=== PATIENT | male | born 1935 | race Caucasian/White ===

== ENCOUNTER 2016-10-01 15:13 | Emergency (ER) | payer MEDICARE, OTHER ==
--- NOTE | 2016-10-01 16:34 | ER Document Report ---
ED Medical Screen (RME) - General Stated Complaint: POSSIBLE EYE INFECTION Time seen by provider: 16:31 Mode of Arrival: Wheelchair Information source: Patient Notes: 81-year-old male with history of basal cell, and precancerous on the right side of his nose has been using Zyclara .skin ointment (dr. bishop) which she got into his right eye accidentally last night. Today he has a mucoid yellow drainage with puffiness and increased redness to his inferior orbit. I have greeted and performed a rapid initial assessment of this patient. A comprehensive ED assessment, evaluation of the patient, analysis of test results , and completion of the medical decision making process will be conducted by additional ED providers. TRAVEL OUTSIDE OF THE [place] IN LAST 30 DAYS: No - Related Data Allergies/Adverse Reactions: No Known Allergies Allergy (Unverified 12/21/14 20:22) Past Medical History - Past Medical History Cardiac Medical History: Reports: Hx Hypercholesterolemia, Hx Hypertension Malignancy Medical History: Reports Hx Skin Cancer Past Surgical History: Reports: Hx Appendectomy, Hx Tonsillectomy Physical Exam - Vital signs Vitals: Temp Pulse Resp BP Pulse Ox 98.4 F 89 24 H 162/99 H 96 10/01/16 15:50 10/01/16 15:50 10/01/16 15:50 10/01/16 15:50 10/01/16 15:50 Course - Vital Signs Vital signs: Temp Pulse Resp BP Pulse Ox 98.4 F 89 24 H 162/99 H 96 10/01/16 15:50 10/01/16 15:50 10/01/16 15:50 10/01/16 15:50 10/01/16 15:50
[2016-10-01] MEDS ORDERED: CLINDAMYCIN HCL 150 MG CAPSULE PO ONE (20:48)
--- NOTE | 2016-10-01 20:50 | ER Document Report ---
ED General - General Chief Complaint: Eye Problem Stated Complaint: POSSIBLE EYE INFECTION Mode of Arrival: Wheelchair Information source: Patient Notes: 81-year-old female presents with complaints of redness to the right cheek. Patient notes that he has a skin cancer that he's been treating, area has dried out and cracked. Denies any fevers or chills nausea vomiting or diarrhea denies any pain family members force the patient to come in TRAVEL OUTSIDE OF THE [place] IN LAST 30 DAYS: No - HPI Onset: This morning Onset/Duration: Sudden Quality of pain: No pain Severity: Mild Pain Level: Denies Associated symptoms: None Exacerbated by: Denies Relieved by: Denies Similar symptoms previously: No Recently seen / treated by doctor: No - Related Data Allergies/Adverse Reactions: No Known Allergies Allergy (Verified 10/01/16 16:36) Past Medical History - General Information source: Patient - Social History Smoking Status: Never Smoker Cigarette use (# per day): No Chew tobacco use (# tins/day): No Smoking Education Provided: No Frequency of alcohol use: None Drug Abuse: None Family History: Reviewed & Not Pertinent Patient has suicidal ideation: No Patient has homicidal ideation: No - Past Medical History Cardiac Medical History: Reports: Hx Hypercholesterolemia, Hx Hypertension Renal/ Medical History: Denies: Hx Peritoneal Dialysis Malignancy Medical History: Reports Hx Skin Cancer Past Surgical History: Reports: Hx Appendectomy, Hx Tonsillectomy Review of Systems - Review of Systems Notes: REVIEW OF SYSTEMS: CONSTITUTIONAL : Denies fever, chills, or sweats. Denies recent illness. EENT: Denies eye, ear, throat, or mouth pain or symptoms. Denies nasal or sinus congestion or discharge. Denies throat, tongue, or mouth swelling or difficulty swallowing. CARDIOVASCULAR: Denies chest pain. Denies palpitations or racing or irregular heart beat. Denies ankle edema. RESPIRATORY: Denies cough, cold, or chest congestion. Denies shortness of breath, difficulty breathing, or wheezing. GASTROINTESTINAL: Denies abdominal pain or distention. Denies nausea, vomiting , or diarrhea. Denies blood in vomitus, stools, or per rectum. Denies black, tarry stools. Denies constipation. GENITOURINARY: Denies difficulty urinating, painful urination, burning, frequency, blood in urine, or discharge. MUSCULOSKELETAL: Denies back or neck pain or stiffness. Denies joint pain or swelling. SKIN: Redness to right cheek HEMATOLOGIC : Denies easy bruising or bleeding. LYMPHATIC: Denies swollen, enlarged glands. NEUROLOGICAL: Denies confusion or altered mental status. Denies passing out or loss of consciousness. Denies dizziness or lightheadedness. Denies headache. Denies weakness or paralysis or loss of use of either side. Denies problems with gait or speech. Denies sensory loss, numbness, or tingling. Denies seizures. PSYCHIATRIC: Denies anxiety or stress. Denies depression, suicidal ideation, or homicidal ideation. ALL OTHER SYSTEMS REVIEWED AND NEGATIVE. Dictation was performed using [employer] voice recognition software PHYSICAL EXAMINATION: GENERAL: Well-appearing, well-nourished and in no acute distress. HEAD: Right cheek mild edema no fluctuance no hard mass EYES: Pupils equal round and reactive to light, extraocular movements intact, sclera anicteric, conjunctiva are normal. ENT: Nares patent, oropharynx clear without exudates. Moist mucous membranes. NECK: Normal range of motion, supple without lymphadenopathy LUNGS: Breath sounds clear to auscultation bilaterally and equal. No wheezes rales or rhonchi. HEART: Regular rate and rhythm without murmurs ABDOMEN: Soft, nontender, nondistended abdomen. No guarding, no rebound. No masses appreciated. Musculoskeletal: Normal range of motion, no pitting or edema. No cyanosis. NEUROLOGICAL: Cranial nerves grossly intact. Normal speech, normal gait. Normal sensory, motor exams PSYCH: Normal mood, normal affect. SKIN: Warm to touch with no involvement of the ocular muscles from supraorbital to the midcheek on the right Physical Exam - Vital signs Vitals: Temp Pulse Resp BP Pulse Ox 98.4 F 89 24 H 162/99 H 96 10/01/16 15:50 10/01/16 15:50 10/01/16 15:50 10/01/16 15:50 10/01/16 15:50 - HEENT Visual acuity- Right eye: 20/70 Visual acuity- Left eye: 20/50 Visual acuity- Both eyes: 20/50 Corrective lenses worn: Yes Course - Re-evaluation Re-evalutation: 10/01/16 21:28 Patient has obvious cellulitic component, there is no abscess or fluctuance. Patient will be started on clindamycin and has been instructed to recheck in 24- 48 hrs. or to return immediately if symptoms worsen or if there is any eye involvement After performing a Medical Screening Examination, I estimate there is LOW risk for a RETAINED CORNEAL or LID FOREIGN BODY, DEEP SPACE INFECTION (e.g., ORBITAL CELLULITIS OR ABSCESS), ACUTE GLAUCOMA, PENETRATING GLOBE INJURY, RETINAL DETACHMENT, or MENINGITIS thus I consider the discharge disposition reasonable. Also, there is no evidence or peritonitis, sepsis, or toxicity. The patient and I have discussed the diagnosis and risks, and we agree with discharging home with outpatient follow-up with the understanding that symptoms and presentations can change. We also discussed returning to the Emergency Department immediately if new or worsening symptoms occur. We have discussed the symptoms which are most concerning (e.g., changing or worsening pain, vision changes, neck stiffness or fever) that necessitate immediate return. - Vital Signs Vital signs: Temp Pulse Resp BP Pulse Ox 97.9 F 74 18 174/72 H 97 10/01/16 21:08 10/01/16 21:08 10/01/16 21:08 10/01/16 21:08 10/01/16 21:08 Discharge - Discharge Clinical Impression: Facial cellulitis Condition: Stable Disposition: HOME, SELF-CARE Additional Instructions: He must return immediately if symptoms worsen or if there is any pain with eye movement Prescriptions: Clindamycin HCl 300 mg PO Q6 #40 capsule Referrals: JOSSELINE FONTENOT MD [Primary Care Provider] - Follow up as needed
[2016-10-01 21:09] VITALS: BP 174/72
== END 2016-10-01 21:09 | disposition home or self-care (01) ==
LOC: ER 15:13
DX: L03.211 Cellulitis of face (principal); C44.309 Unspecified malignant neoplasm of skin of other parts of face; I10 Essential (primary) hypertension
CPT/HCPCS: 99283; A9270

== ENCOUNTER 2017-09-22 11:29 | Emergency (ER) | payer MEDICARE, OTHER ==
[2017-09-22 12:02] LABS: ABSOLUTE EOSINOPHILS # (AUTO) 0.1 10^3/uL (0.0-0.6); ABSOLUTE LYMPHOCYTES (AUTO) 0.6 10^3/uL (0.5-4.7); ABSOLUTE MONOCYTES (AUTO) 0.6 10^3/uL (0.1-1.4); ABSOLUTE NEUT (AUTO) 9.3 10^3/uL (1.7-8.2); BASOPHILS % (AUTO) 0.4 % (0-2); EOSINOPHILS % (AUTO) 0.5 % (0-6); HEMOGLOBIN 10.4 g/dL (13.5-17.0); LYMPHOCYTES % (AUTO) 5.7 % (13-45); MEAN CORPUSCULAR HEMOGLOBIN 31.9 pg (27.0-33.4); MEAN CORPUSCULAR HGB CONC 33.6 g/dL (32.0-36.0); MEAN CORPUSCULAR VOLUME 95 fl (80-97); MONOCYTES % (AUTO) 5.7 % (3-13); PLATELET COUNT 129 10^3/uL (150-450); RED BLOOD COUNT 3.27 10^6/uL (4.35-5.55); RED CELL DISTRIBUTION WIDTH 15.6 % (11.5-14.0); SEGMENTED NEUTROPHILS % (AUTO) 87.7 % (42-78); TOTAL CELLS COUNTED % (AUTO) 100 %; WHITE BLOOD COUNT 10.6 10^3/uL (4.0-10.5)
[2017-09-22] MEDS ORDERED: NORMAL SALINE 1000 ML 1,000 ML IV ONE (12:04)
--- NOTE | 2017-09-22 12:11 | ER Document Report ---
ED General - General Chief Complaint: General Weakness Stated Complaint: FALL Time Seen by Provider: 09/22/17 11:43 Information source: Patient Notes: 82-year-old male who states over the last few weeks he has had multiple falls. He denies hitting his head. Patient states when he sits up he feels "lightheaded". Patient is on blood pressure medications, has Parkinson's disease, has congestive heart failure, is on Lasix and a clonidine patch, and recently was started on Myrbetriq for overactive bladder. This medicine actually has the side effect profile to increase blood pressure, not decrease it. He denies hitting his head, chest pain, abdominal pain, weakness or numbness. He does state that he felt a little short of breath over this last week with may be some increased edema to his lower legs. He denies any nausea, vomiting, fevers, or diarrhea. TRAVEL OUTSIDE OF THE [place] IN LAST 30 DAYS: No - HPI Onset: Other - See above Onset/Duration: Gradual Severity: Mild Pain Level: 0 Associated symptoms: Other - See above Exacerbated by: Denies Relieved by: Denies Similar symptoms previously: Yes Recently seen / treated by doctor: No - Related Data Allergies/Adverse Reactions: No Known Allergies Allergy (Verified 10/01/16 16:36) Past Medical History - General Information source: Patient - Social History Smoking Status: Former Smoker Cigarette use (# per day): No Chew tobacco use (# tins/day): No Smoking Education Provided: No Frequency of alcohol use: None Drug Abuse: None Family History: Reviewed & Not Pertinent Patient has suicidal ideation: No Patient has homicidal ideation: No - Past Medical History Cardiac Medical History: Reports: Hx Hypercholesterolemia, Hx Hypertension Renal/ Medical History: Reports: Hx End Stage Renal Disease. Denies: Hx Peritoneal Dialysis Malignancy Medical History: Reports Hx Skin Cancer Past Surgical History: Reports: Hx Appendectomy, Hx Tonsillectomy - Immunizations Hx Diphtheria, Pertussis, Tetanus Vaccination: Yes Review of Systems - Review of Systems Constitutional: denies: Fever EENT: denies: Eye discharge, Nose discharge Cardiovascular: denies: Chest pain, Palpitations Respiratory: Short of breath Gastrointestinal: denies: Vomiting Genitourinary: denies: Dysuria Musculoskeletal: denies: Leg swelling Skin: Other - no hives. denies: Rash Neurological/Psychological: Other - no slurred speech -: Yes All other systems reviewed and negative Physical Exam - Vital signs Notes: Reviewed vital signs and nursing note as charted by RN. CONSTITUTIONAL: Alert and oriented and responds appropriately to questions. Well -appearing; well-nourished HEAD: Normocephalic; atraumatic EYES: Sclerae non-icteric ENT: Normal nose; no rhinorrhea; moist mucous membranes; pharynx without lesions noted NECK: Supple without meningismus; non-tender CARD: Regular rate and rhythm; no murmurs RESP: Normal chest excursion without splinting or tachypnea; breath sounds clear and equal bilaterally with minimal rales without rhonchi or wheezing ABD/GI: Normal bowel sounds; non-distended; soft, non-tender BACK: The back appears normal and is non-tender to palpation EXT: Normal ROM in all joints; non-tender to palpation; 2+ pitting edema to bilateral shins SKIN: No acute lesions noted NEURO: CN II through XII are intact. Moves all extremities equally; Motor and sensory function intact PSYCH: The patient's mood and manner are appropriate. Grooming and personal hygiene are appropriate. Course - Re-evaluation Re-evalutation: 09/22/17 12:10 Given the history and physical examination, I will order cardiac panel, EKG, laboratory profile, CT scan of the head, urinalysis, and provide fluids. 09/22/17 12:36 Troponin as recorded. We will provide a 325 mg aspirin. We do not have cardiac catheterization capabilities here at this facility so we will transport the patient to an outside facility. BNP as recorded and it does appear that the patient is also in possibly acute renal failure. The only old laboratory value that I have is around 1.59 from 2015. We have provided 750 cc of normal saline. Patient still denies any chest pain. 09/22/17 12:39 X-ray of the chest shows no obvious acute abnormalities. 09/22/17 13:42 Given the elevated troponin. We have provided aspirin and a one-time Lovenox injection. I believe given his creatinine clearance he should receive Lovenox injection once daily. I have called cardiac connections at [facility] for transfer. Patient denies any pain at this time. Given the lack of any and all chest pain, I do believe pulmonary embolism to be unlikely. Patient is receiving Lovenox at this time for a probable NSTEMI. 09/22/17 16:29 Patient has been transferred to [facility] with acceptance by Dr. Nick Mata. - Laboratory Result Diagrams: 09/22/17 11:40 09/22/17 11:40 Laboratory results interpreted by me: 09/22/17 09/22/17 09/22/17 11:40 11:40 11:40 WBC 10.6 H RBC 3.27 L Hgb 10.4 L Hct 31.0 L RDW 15.6 H Plt Count 129 L Seg Neutrophils % 87.7 H Lymphocytes % 5.7 L Absolute Neutrophils 9.3 H BUN 41 H Creatinine 2.26 H Est GFR ( Amer) 34 L Est GFR (Non-Af Amer) 28 L Glucose 116 H NT-Pro-B Natriuret Pep 7230 H Urine Protein Urine Ketones Urine Ascorbic Acid 09/22/17 14:07 WBC RBC Hgb Hct RDW Plt Count Seg Neutrophils % Lymphocytes % Absolute Neutrophils BUN Creatinine Est GFR ( Amer) Est GFR (Non-Af Amer) Glucose NT-Pro-B Natriuret Pep Urine Protein 30 H Urine Ketones TRACE H Urine Ascorbic Acid 40 H Critical Care Note - Critical Care Note Total time excluding time spent on procedures (mins): 35 Discharge - Discharge Clinical Impression: SOB (shortness of breath), NSTEMI (non-ST elevated myocardial infarction) Fall Qualifiers: Encounter type: initial encounter Qualified Code(s): W19.XXXA - Unspecified fall, initial encounter Condition: Serious Disposition: [facility] Referrals: JOSSELINE FONTENOT MD [Primary Care Provider] - Follow up as needed
[2017-09-22 12:20] LABS: ANION GAP 12 (5-19); BLOOD UREA NITROGEN 41 mg/dL (7-20); CALCIUM 9.2 mg/dL (8.4-10.2); CARBON DIOXIDE 24 mmol/L (22-30); CHLORIDE 107 mmol/L (98-107); GLUCOSE 116 mg/dL (75-110); POTASSIUM 4.1 mmol/L (3.6-5.0); SODIUM 143.1 mmol/L (137-145)
[2017-09-22] MEDS ORDERED: ASPIRIN 325 MG TABLET PO ONE (12:38)
--- NOTE | 2017-09-22 12:38 | RADIOLOGY REPORT (SQ) ---
EXAM DESCRIPTION: CHEST PA/LAT COMPLETED DATE/TIME: 09/22/2017 12:31 pm REASON FOR STUDY: mp; sob COMPARISON: 12/21/2014 EXAM PARAMETERS: NUMBER OF VIEWS: two views TECHNIQUE: Digital Frontal and Lateral radiographic views of the chest acquired. RADIATION DOSE: NA LIMITATIONS: none FINDINGS: LUNGS AND PLEURA: No new opacities, masses or pneumothorax. No pleural effusion. MEDIASTINUM AND HILAR STRUCTURES: No masses or contour abnormalities. HEART AND VASCULAR STRUCTURES: Heart stable in size. No evidence for failure. BONES: No acute findings. HARDWARE: None in the chest. OTHER: No other significant finding. IMPRESSION: NO ACUTE CARDIOPULMONARY PROCESS. NO SIGNIFICANT CHANGE FROM PRIOR STUDY. TECHNICAL DOCUMENTATION: JOB ID: [id number] [employer]- All Rights Reserved Reading location - IP/workstation name: [email or web address]
--- NOTE | 2017-09-22 12:55 | RADIOLOGY REPORT (SQ) ---
EXAM DESCRIPTION: CT HEAD WITHOUT COMPLETED DATE/TIME: 09/22/2017 12:47 pm REASON FOR STUDY: mp; muliple falls COMPARISON: 03/11/2007. TECHNIQUE: Axial images acquired through the brain without intravenous contrast. Images reviewed wi th bone, brain and subdural windows. Images stored on PACS. All CT scanners at this facility use dose modulation, iterative reconstruction, and/or weight based d osing when appropriate to reduce radiation dose to as low as reasonably achievable (ALARA). [facility]: Dose Right [facility]: CareDose [facility]: Dose Right [facility]: Teradose 4D [facility]: [employer] RADIATION DOSE: CT Rad equipment meets quality standard of care and radiation dose reduction techniq ues were employed. CTDIvol: 64.6 mGy. DLP: 1938 mGy-cm. mGy. LIMITATIONS: None. FINDINGS: VENTRICLES: Prominent. CEREBRUM: No masses. No hemorrhage. No midline shift. Areas of low density in the white matter mos t likely due to chronic micro-vascular ischemic change. No evidence for acute infarction. CEREBELLUM: No masses. No hemorrhage. No alteration of density. No evidence for acute infarction. EXTRAAXIAL SPACES: Mild age-related involutional change. No fluid collections. No masses. ORBITS AND GLOBE: No intra- or extraconal masses. Normal contour of globe without masses. CALVARIUM: No fracture. PARANASAL SINUSES: Mild mucosal thickening without air-fluid levels. SOFT TISSUES: No mass or hematoma. OTHER: No other significant finding. IMPRESSION: MILD CHRONIC CHANGES OF ATROPHY AND MICROVASCULAR ISCHEMIA. MILD CHRONIC PARANASAL SINU S DISEASE. NO ACUTE PROCESS. EVIDENCE OF ACUTE STROKE: NO. TECHNICAL DOCUMENTATION: JOB ID: [id number] Quality ID # [id number]: Final reports with documentation of one or more dose reduction techniques (e.g., Au tomated exposure control, adjustment of the mA and/or kV according to patient size, use of iterative reconstruction technique) 2010 [employer]- All Rights Reserved Reading location - IP/workstation name: [email or web address]
[2017-09-22] MEDS ORDERED: ENOXAPARIN SODIUM INJ 100 MG/1 ML DISP.SYRIN SUBCUT ONE (13:25)
[2017-09-22 14:23] LABS: APPEARANCE,URINE SLIGHTLY-CLOUDY; BILIRUBIN,URINE NEGATIVE (NEGATIVE); COLOR,URINE YELLOW; GLUCOSE, URINE NEGATIVE (NEGATIVE); KETONES,URINE TRACE mg/dL (NEGATIVE); LEUKOCYTE ESTERASE,URINE NEGATIVE (NEGATIVE); NITRITE,URINE NEGATIVE (NEGATIVE); PROTEIN,URINE 30 mg/dL (NEGATIVE); URINE SPECIFIC GRAVITY 1.013; UROBILINOGEN,URINE NEGATIVE mg/dL (<2.0)
--- NOTE | 2017-09-22 16:11 | EKG REPORT ---
SEVERITY:- ABNORMAL ECG - SINUS TACHYCARDIA BORDERLINE PROLONGED QT INTERVAL NEW T INVERSIONS IN ANTERIOR LEADS COMPARED TO 12/21/14 EKG CLINICAL CORRELATION NEEDED. : Confirmed by: Balbir Gill MD 22-Sep-2017 16:11:12
[2017-09-22 18:22] VITALS: BP 136/77
== END 2017-09-22 18:05 | disposition short-term general hospital (02) ==
LOC: ER 11:29
DX: I21.4 Non-ST elevation (NSTEMI) myocardial infarction (principal); R06.02 Shortness of breath; R53.1 Weakness; W19.XXXA Unspecified fall, initial encounter; Z91.81 History of falling; G20 Parkinson's disease; R60.9 Edema, unspecified; I12.0 Hypertensive chronic kidney disease with stage 5 chronic kidney disease or end stage renal disease; N18.6 End stage renal disease; Z87.891 Personal history of nicotine dependence
CPT/HCPCS: 93005; 99291; 96372; 96360; 96361; 51702; 36415; 85025; 80048; 81001; 84484; 83880; 71046; 70450; 93010; A9270; J7030; J1650